=== PATIENT | female | born 1975 | race Native Hawaiian/Other Pacific Islander ===

== ENCOUNTER 2021-09-27 17:34 | Emergency (ER) | payer OTHER ==
[~2021-09-27] VITALS: Ht 152.4 cm; Wt 86.2 kg
[2021-09-27] MEDS ORDERED: CLINDAMYCIN HY300 MG PO (19:12)
[2021-09-27] MEDS ORDERED: CIPRO500 MG PO (19:12)
[2021-09-27 19:45] VITALS: BP 110/66; TEMP 98.5
== END 2021-09-27 19:50 | disposition home or self-care (01) ==
LOC: ED 17:34
DX: L03.113 Cellulitis of right upper limb (principal); S61.411A Laceration without foreign body of right hand, initial encounter; X58.XXXA Exposure to other specified factors, initial encounter; Y92.89 Other specified places as the place of occurrence of the external cause
CPT/HCPCS: 99283

== ENCOUNTER 2021-10-01 16:23 | Emergency (ER) | payer OTHER ==
[~2021-10-01] VITALS: Ht 160 cm; Wt 86.2 kg
[~2021-10-01 16:23] MED LIST: CIPRO500 MG PO; CLINDAMYCIN HY300 MG PO
[2021-10-01 16:40] VITALS: TEMP 98
[2021-10-01 17:30] VITALS: BP 147/89
== END 2021-10-01 17:48 | disposition home or self-care (01) ==
LOC: ED 16:23
DX: M13.88 Other specified arthritis, other site (principal); I10 Essential (primary) hypertension; M79.605 Pain in left leg; M79.604 Pain in right leg; F17.210 Nicotine dependence, cigarettes, uncomplicated
CPT/HCPCS: 96372; 99283; J2930

== ENCOUNTER 2021-10-23 20:17 | Emergency (ER) | payer OTHER ==
[~2021-10-23] VITALS: Ht 160 cm; Wt 86.2 kg
[2021-10-23 20:34] VITALS: BP 172/107; TEMP 98.7
== END 2021-10-23 22:00 | disposition home or self-care (01) ==
LOC: ED 20:17
DX: M25.571 Pain in right ankle and joints of right foot (principal)
CPT/HCPCS: 96372; 99283; J1885; J2930

== ENCOUNTER 2021-11-19 18:42 | Emergency (ER) | payer OTHER ==
[~2021-11-19] VITALS: Ht 152.4 cm; Wt 86.2 kg
[2021-11-19 21:40] VITALS: BP 131/82; TEMP 98
== END 2021-11-19 21:40 | disposition home or self-care (01) ==
LOC: ED 18:42
DX: M77.32 Calcaneal spur, left foot (principal)
CPT/HCPCS: 99282; J1885

== ENCOUNTER 2021-11-26 22:18 | Emergency (ER) | payer OTHER ==
[~2021-11-26] VITALS: Ht 152.4 cm; Wt 86.2 kg
[2021-11-26 23:33] LABS: PLATELET COUNT 196 K/uL (152-353)
[2021-11-26 23:57] LABS: POTASSIUM 3.5 mmol/L (3.6-5.2)
[2021-11-27 00:54] VITALS: BP 141/98; TEMP 98.2
== END 2021-11-27 00:54 | disposition home or self-care (01) ==
LOC: ED 22:18
PROVIDERS: Emergency Medicine
DX: M25.571 Pain in right ankle and joints of right foot (principal); M79.671 Pain in right foot; B19.20 Unspecified viral hepatitis C without hepatic coma
CPT/HCPCS: 36415; 80048; 84550; 85027; 96372; 99283; J1170; J2550; J2920

== ENCOUNTER 2021-12-24 17:12 | Emergency (ER) | payer OTHER ==
[~2021-12-24] VITALS: Ht 152.4 cm; Wt 86.2 kg
[2021-12-24 17:17] VITALS: BP 166/110; TEMP 97.3
== END 2021-12-24 17:43 | disposition home or self-care (01) ==
LOC: ED 17:12
DX: S76.811A Strain of other specified muscles, fascia and tendons at thigh level, right thigh, initial encounter (principal); S86.811A Strain of other muscle(s) and tendon(s) at lower leg level, right leg, initial encounter; I10 Essential (primary) hypertension; R00.0 Tachycardia, unspecified; F17.210 Nicotine dependence, cigarettes, uncomplicated; X50.9XXA Other and unspecified overexertion or strenuous movements or postures, initial encounter; Y92.89 Other specified places as the place of occurrence of the external cause
CPT/HCPCS: 99281

== ENCOUNTER 2022-02-12 20:32 | Emergency (ER) | payer OTHER ==
[~2022-02-12] VITALS: Ht 152.4 cm; Wt 90.7 kg
[2022-02-12 21:52] VITALS: BP 134/76; TEMP 98.4
== END 2022-02-12 21:52 | disposition home or self-care (01) ==
LOC: ED 20:32
DX: M17.9 Osteoarthritis of knee, unspecified (principal); M16.9 Osteoarthritis of hip, unspecified
CPT/HCPCS: 96372; 99282; J1885; J2920